=== PATIENT | male | born 1975 | race Caucasian/White ===

== ENCOUNTER 2020-11-23 02:04 | Observation (INO) ==
[2020-11-23] MEDS ORDERED: *HR* FentaNYL (PF) 100 MCG/2 ML VIAL IVP ONE ×2 (03:28→03:52)
[2020-11-23 03:33] LABS: Basophils % 0.5 %; Hemoglobin 16.2 g/dL (12.9-16.9); Immature Granulocytes % 0.5 % (0-4); Lymphocytes # 1.4 K/mcL (0.6-4.6); Lymphocytes % 34.9 %; Mean Corpuscular HGB Conc 34.5 g/dL (31.6-35.5); Mean Corpuscular Hemoglobin 30.3 pg (28.0-33.3); Mean Corpuscular Volume 87.9 fL (83.0-100.0); Mean Platelet Volume 10.1 fL (9.4-12.4); Monocytes # 0.4 K/mcL (0.0-1.3); Monocytes % 9.9 %; Neutrophils # 2.2 K/mcL (1.6-8.9); Platelet Count 191 K/mcL (140-400); Red Blood Count 5.35 M/mcL (4.19-5.50); Red Cell Distribution Width 11.7 % (11.5-14.5); Segmented Neutrophils % 53.2 %
[2020-11-23 03:36] LABS: INR 1.1; Prothrombin Time 12.2 Seconds (9.4-12.1)
[2020-11-23 03:38] LABS: Activated Partial Thrombo Time 28.8 Seconds (26.0-36.0)
[2020-11-23 03:45] LABS: BUN/Creatinine Ratio 12 (6-26); Blood Urea Nitrogen 9 mg/dL (6-20); Calcium 9.1 mg/dL (8.6-10.3); Carbon Dioxide 24 mEq/L (23-29); Chloride 105 mEq/L (98-107); Glucose 116 mg/dL (70-105); Osmolality,Calculated 290 (280-300); Potassium 3.8 mEq/L (3.5-5.1); Sodium 140 mEq/L (136-145); eGFR For African Americans > 60 (> 60); eGFR For Non-African Americans > 60 (> 60)
[2020-11-23] MEDS ORDERED: Morphine Sulfate 2 MG/ML SYRINGE IVP PRN (04:12)
[2020-11-23] MEDS ORDERED: *HR* OxyCODONE/APAP 5/325 TABLET PO PRN (04:44)
[2020-11-23] MEDS ORDERED: Naloxone 0.4 MG/ML INJ IVP PRN (04:46)
[2020-11-23] MEDS ORDERED: Ondansetron 4 MG/2 ML VIAL IVP PRN (04:46)
[2020-11-23] MEDS ORDERED: Ringers Solution, Lactated 1,000 ML IVC SCH (05:15)
[2020-11-23 05:16] LABS: Amphetamine Screen,Urine Negative ng/mL (Cutoff=1000); Barbiturate Screen,Urine Negative ng/mL (Cutoff=200); Benzodiazepines Screen,Urine Negative ng/mL (Cutoff=200); Cannabinoid Screen,Urine Negative ng/mL (Cutoff = 50); Cocaine Screen,Urine Negative ng/mL (Cutoff= 300); Opiate Screen,Urine Negative ng/mL (Cutoff=300); Phencyclidine Screen,Urine Negative ng/mL (Cutoff=25)
[2020-11-23] MEDS ORDERED: *HR* OxyCODONE Immed Rel 5 MG TABLET PO PRN (05:16)
[2020-11-23] MEDS ORDERED: Acetaminophen 325 MG TABLET PO SCH (06:00)
[2020-11-23] MEDS ORDERED: Ibuprofen 600 MG TABLET PO PRN (06:00)
[2020-11-23 06:31] VITALS: BP 135/96
[2020-11-23] MEDS ORDERED: *HR* OxyCODONE Immed Rel 5 MG TABLET PO STA (10:40)
[2020-11-23] MEDS ORDERED: *HR* OxyCODONE/APAP 5/325 TABLET PO ONE (10:42)
== END 2020-11-23 12:31 | disposition home or self-care (01) ==
LOC: CDU 02:04 → EMEROOARM 02:04 → SUATTDRO 04:59 → CDU 05:52 → 3NENU 09:53
PROVIDERS: ADMIT Internal Medicine; ATTEND Student in an Organized Health Care Education/Training Program